=== PATIENT | female | born 1985 | race Caucasian/White ===

== ENCOUNTER 2019-05-13 14:43 | Day surgery (SDC) | payer BC ==
[2019-05-13] MEDS ORDERED: Sodium Chloride 0.9% 10 ML Syringe FLUSH PRN (15:20)
--- NOTE | 2019-05-13 16:57 | EDM.PDOC ---
ED HPI GENERAL MEDICAL PROBLEM - General Chief Complaint: Abdominal Pain Stated Complaint: ABDOMINAL AND BACK PAIN Time Seen by Provider: 05/13/19 14:55 Source of Information: Reports: Patient, RN Notes Reviewed - History of Present Illness INITIAL COMMENTS - FREE TEXT/NARRATIVE: 34-year-old female comes in with sudden onset of abdominal pain about 2 hours prior to arrival. She had been feeling fine earlier today. She did have a couple of pieces of pizza from [employer] at noon today and then onset of pain not too long after that. Her pain is been right upper quadrant with some radiation to her back. Pain initially was quite severe and now is more moderate but still present. She did have some nausea but no vomiting. There's been no fever or chills. She has no known personal history for gallbladder disease but there is a strong family history for gallbladder problems. She states that she' d been on a quite intense diet for the prior 6 weeks and had not been eating any fatty type foods whatsoever up until lunch today. No chest pain, cough or difficulty breathing. No lower abdominal or pelvic discomfort. Right Upper Abdomen Pain Score (Numeric/FACES): 4 - Related Data Allergies Allergy/AdvReac Type Severity Reaction Status Date / Time No Known Allergies Allergy Verified 05/13/19 14:55 Home Meds: Home Meds Esomeprazole Magnesium [Nexium] 40 mg PO DAILY 05/13/19 [History] Metoprolol Tartrate 12.5 mg PO BID 05/13/19 [History] Midodrine 2.5 mg PO TIDAC 05/13/19 [History] Verapamil HCl [Verapamil Sr] 180 mg PO DAILY 05/13/19 [History] Past Medical History Cardiovascular History: Reports: Other (See Below) Other Cardiovascular History: POTS Gastrointestinal History: Reports: GERD Social & Family History - Family History Family Medical History: Noncontributory - Tobacco Use Smoking Status *Q: Never Smoker ED ROS GENERAL - Review of Systems Review Of Systems: See Below Constitutional: Denies: Fever, Chills HEENT: Reports: No Symptoms Respiratory: Denies: Shortness of Breath, Pleuritic Chest Pain Cardiovascular: Denies: Chest Pain GI/Abdominal: Reports: Abdominal Pain, Nausea. Denies: Diarrhea, Vomiting (Non- ) Musculoskeletal: Reports: Back Pain Skin: Reports: No Symptoms ED EXAM, GI/ABD - Physical Exam Exam: See Below General Appearance: Alert, Mild Distress Throat/Mouth: Normal Inspection Respiratory/Chest: No Respiratory Distress, No Accessory Muscle Use Cardiovascular: Normal Peripheral Pulses, Regular Rate, Rhythm GI/Abdominal Exam: Tender (There is moderate tenderness of the upper mid abdomen and right upper quadrant). No: Guarding, Rebound Back Exam: No: CVA Tenderness (L), CVA Tenderness (R) Extremities: Normal Inspection, Normal Range of Motion Skin Exam: Warm, Dry, Normal Color Course - Vital Signs Last Recorded V/S: Last Vital Signs Temp 97.9 F 05/13/19 19:25 Pulse 73 05/13/19 19:25 Resp 16 05/13/19 19:25 BP 125/83 05/13/19 19:25 Pulse Ox 100 05/13/19 19:25 - Orders/Labs/Meds Orders: Active Orders 24 hr Category Date Time Status EKG Documentation Completion [RC] STAT Care 05/13/19 19:25 Active Peripheral IV Care [RC] . DIRECTED Care 05/13/19 15:22 Active Abdomen Ltd [US] Stat Exams 05/13/19 16:37 Taken Sodium Chloride 0.9% [Saline Flush] Med 05/13/19 15:20 Active 10 ml FLUSH ASDIRECTED PRN Peripheral IV Insertion Adult [OM.PC] Stat Oth 05/13/19 15:22 Ordered Medication Orders Sodium Chloride (Saline Flush) 10 ml FLUSH ASDIRECTED PRN PRN Reason: Keep Vein Open Last Admin: 05/13/19 18:25 Dose: 10 ml Labs: Laboratory Tests 05/13/19 05/13/19 Range/Units 15:40 15:40 WBC 15.62 H (3.98-10.04) K/mm3 RBC 5.22 (3.98-5.22) M/mm3 Hgb 14.0 (11.2-15.7) gm/L Hct 43.5 (34.1-44.9) % MCV 83.3 (79.4-94.8) fl MCH 26.8 (25.6-32.2) pg MCHC 32.2 (32.2-35.5) g/dl RDW Std Deviation 45.1 (36.4-46.3) fL Plt Count 241 (182-369) K/mm3 MPV 13.1 H (9.4-12.3) fl Neut % (Auto) 86.3 H (34.0-71.1) % Lymph % (Auto) 8.1 L (19.3-51.7) % Meriwether % (Auto) 4.6 L (4.7-12.5) % Eos % (Auto) 0.6 L (0.7-5.8) Baso % (Auto) 0.2 (0.1-1.2) % Neut # (Auto) 13.48 H (1.56-6.13) K/mm3 Lymph # (Auto) 1.27 (1.18-3.74) K/mm3 Meriwether # (Auto) 0.72 H (0.24-0.36) K/mm3 Eos # (Auto) 0.09 (0.04-0.36) K/mm3 Baso # (Auto) 0.03 (0.01-0.08) K/mm3 Manual Slide Review Abnormal smear Sodium 140 (136-145) mEq/L Potassium 3.6 (3.5-5.1) mEq/L Chloride 101 (98-107) mEq/L Carbon Dioxide 27 (21-32) mEq/L Anion Gap 15.6 H (5-15) BUN 12 (7-18) mg/dL Creatinine 0.9 (0.55-1.02) mg/dL Est Cr Clr Drug Dosing 84.03 mL/min Estimated GFR (MDRD) > 60 (>60) mL/min BUN/Creatinine Ratio 13.3 L (14-18) Glucose 89 (74-106) mg/dL Calcium 9.2 (8.5-10.1) mg/dL Total Bilirubin 0.5 (0.2-1.0) mg/dL GGT 76 H (5-55) U/L AST 49 H (15-37) U/L ALT 41 (14-59) U/L Alkaline Phosphatase 72 (46-116) U/L Total Protein 7.7 (6.4-8.2) g/dl Albumin 4.4 (3.4-5.0) g/dl Globulin 3.3 gm/dL Albumin/Globulin Ratio 1.3 (1-2) Lipase 155 (73-393) U/L Meds: Medications Generic Name Dose Route Start Last Admin Trade Name Freq PRN Reason Stop Dose Admin Sodium Chloride 10 ml 05/13/19 15:20 05/13/19 18:25 Saline Flush FLUSH 10 ml ASDIRECTED PRN Administration Keep Vein Open Discontinued Medications Generic Name Dose Route Start Last Admin Trade Name Aniya PRN Reason Stop Dose Admin Ceftriaxone Sodium 2 gm 05/13/19 17:58 05/13/19 18:19 Rocephin IV 05/13/19 17:59 Not Given ONETIME ONE Hydromorphone HCl 0.5 mg 05/13/19 18:00 05/13/19 18:23 Dilaudid IVPUSH 05/13/19 18:01 0.5 mg ONETIME ONE Administration Ceftriaxone Sodium 2 gm/ 100 mls @ 200 mls/hr 05/13/19 18:30 05/13/19 18:28 Sodium Chloride IV 05/13/19 18:59 200 mls/hr Q24H ONE Administration - Re-Assessments/Exams Free Text/Narrative Re-Assessment/Exam: 05/13/19 17:00. White blood count somewhat elevated at just over 15,000. STD, GGT very mildly elevated. Bilirubin 0.5. She continues to have mild to moderate discomfort of her upper abdomen but so far is refused anything for pain. Have ordered ultrasound to get a look at her gallbladder and get more information. 05/13/19 18:35. Ultrasound of gallbladder does show sludge and also mild wall thickening. Common bile duct normal, no stones, no dilatation. I discussed this with our General Surgeon pest control supervisor Dr. Mejia who will see patient. Rocephin 2 g IV had been previously ordered along with Dilaudid 0.5 mg IV. 05/13/19 19:00. Dr Mejia will take patient to surgery, cholecystectomy. Pt has been kept NPO. Departure - Departure Time of Disposition: 18:40 Disposition: DC/Tfer to [facility] Condition: Fair Clinical Impression: Cholecystitis - Discharge Information - My Orders Last 24 Hours: My Active Orders 05/13/19 15:20 Sodium Chloride 0.9% [Saline Flush] 10 ml FLUSH ASDIRECTED PRN 05/13/19 15:22 Peripheral IV Care [RC] . DIRECTED Peripheral IV Insertion Adult [OM.PC] Stat 05/13/19 16:37 Abdomen Ltd [US] Stat - Assessment/Plan Last 24 Hours: My Active Orders 05/13/19 15:20 Sodium Chloride 0.9% [Saline Flush] 10 ml FLUSH ASDIRECTED PRN 05/13/19 15:22 Peripheral IV Care [RC] . DIRECTED Peripheral IV Insertion Adult [OM.PC] Stat 05/13/19 16:37 Abdomen Ltd [US] Stat
[2019-05-13] MEDS ORDERED: cefTRIAXone 2 GM Vial IV ONE (17:58)
[2019-05-13] MEDS ORDERED: HYDROmorphone 0.5 MG/0.5 ML Syringe IVPUSH ONE (18:00)
[2019-05-13] MEDS ORDERED: cefTRIAXone 2 GM in Sodium Chloride 0.9% 100 ML IV ONE (18:30)
--- NOTE | 2019-05-13 19:25 | PCM.PREANE ---
Preanesthetic Assessment - Anesthesia/Transfusion/Family Hx Anesthesia History: Prior Anesthesia Without Reaction Family History of Anesthesia Reaction: No Transfusion History: No Prior Transfusion(s) Intubation History: Unknown - Review of Systems General: No Symptoms Pulmonary: No Symptoms Cardiovascular: No Symptoms (Postural orthostatic tachycardia syndrome: POTS), Palpitations Gastrointestinal: No Symptoms (GERD), Abdominal Pain, Constipation (chronic) Neurological: No Symptoms (motion sickness/vertigo), Syncope (POTS) Other: Reports: None - Physical Assessment NPO Status Date: 05/13/19 NPO Status Time: 15:00 Pulse: 73 O2 Sat by Pulse Oximetry: 100 Respiratory Rate: 16 Blood Pressure: 125/83 Temperature: 36.6 C Vital Signs: Last Vital Signs Temp 36.6 C 05/13/19 14:57 Pulse 73 05/13/19 14:57 Resp 16 05/13/19 14:57 BP 125/83 05/13/19 14:57 Pulse Ox 100 05/13/19 14:57 Height: 1.7 m Weight: 88.451 kg ASA Class: 2 Mental Status: Alert & Oriented x3 Airway Class: Mallampati = 2 Dentition: Reports: Normal Dentition, Caries Thyro-Mental Finger Breadths: 3 Mouth Opening Finger Breadths: 3 ROM/Head Extension: Full Lungs: Clear to Auscultation, Normal Respiratory Effort Cardiovascular: Regular Rate, Regular Rhythm, No Murmurs - Lab Values: Laboratory Last Values WBC 15.62 K/mm3 (3.98-10.04) H 05/13/19 15:40 RBC 5.22 M/mm3 (3.98-5.22) 05/13/19 15:40 Hgb 14.0 gm/L (11.2-15.7) 05/13/19 15:40 Hct 43.5 % (34.1-44.9) 05/13/19 15:40 MCV 83.3 fl (79.4-94.8) 05/13/19 15:40 MCH 26.8 pg (25.6-32.2) 05/13/19 15:40 MCHC 32.2 g/dl (32.2-35.5) 05/13/19 15:40 RDW Std Deviation 45.1 fL (36.4-46.3) 05/13/19 15:40 Plt Count 241 K/mm3 (182-369) 05/13/19 15:40 MPV 13.1 fl (9.4-12.3) H 05/13/19 15:40 Neut % (Auto) 86.3 % (34.0-71.1) H 05/13/19 15:40 Lymph % (Auto) 8.1 % (19.3-51.7) L 05/13/19 15:40 Ellis % (Auto) 4.6 % (4.7-12.5) L 05/13/19 15:40 Eos % (Auto) 0.6 (0.7-5.8) L 05/13/19 15:40 Baso % (Auto) 0.2 % (0.1-1.2) 05/13/19 15:40 Neut # (Auto) 13.48 K/mm3 (1.56-6.13) H 05/13/19 15:40 Lymph # (Auto) 1.27 K/mm3 (1.18-3.74) 05/13/19 15:40 Ellis # (Auto) 0.72 K/mm3 (0.24-0.36) H 05/13/19 15:40 Eos # (Auto) 0.09 K/mm3 (0.04-0.36) 05/13/19 15:40 Baso # (Auto) 0.03 K/mm3 (0.01-0.08) 05/13/19 15:40 Manual Slide Review Abnormal smear 05/13/19 15:40 Sodium 140 mEq/L (136-145) 05/13/19 15:40 Potassium 3.6 mEq/L (3.5-5.1) 05/13/19 15:40 Chloride 101 mEq/L (98-107) 05/13/19 15:40 Carbon Dioxide 27 mEq/L (21-32) 05/13/19 15:40 Anion Gap 15.6 (5-15) H 05/13/19 15:40 BUN 12 mg/dL (7-18) 05/13/19 15:40 Creatinine 0.9 mg/dL (0.55-1.02) 05/13/19 15:40 Est Cr Clr Drug Dosing 84.03 mL/min 05/13/19 15:40 Estimated GFR (MDRD) > 60 mL/min (>60) 05/13/19 15:40 BUN/Creatinine Ratio 13.3 (14-18) L 05/13/19 15:40 Glucose 89 mg/dL (74-106) 05/13/19 15:40 Calcium 9.2 mg/dL (8.5-10.1) 05/13/19 15:40 Total Bilirubin 0.5 mg/dL (0.2-1.0) 05/13/19 15:40 GGT 76 U/L (5-55) H 05/13/19 15:40 AST 49 U/L (15-37) H 05/13/19 15:40 ALT 41 U/L (14-59) 05/13/19 15:40 Alkaline Phosphatase 72 U/L (46-116) 05/13/19 15:40 Total Protein 7.7 g/dl (6.4-8.2) 05/13/19 15:40 Albumin 4.4 g/dl (3.4-5.0) 05/13/19 15:40 Globulin 3.3 gm/dL 05/13/19 15:40 Albumin/Globulin Ratio 1.3 (1-2) 05/13/19 15:40 Lipase 155 U/L (73-393) 05/13/19 15:40 Above labs reviewed and noted and within acceptable ranges to proceed with procedure. - Allergies Allergies/Adverse Reactions: Allergies Allergy/AdvReac Type Severity Reaction Status Date / Time No Known Allergies Allergy Verified 05/13/19 14:55 - Anesthesia Plan Pre-Op Medication Ordered: Beta Lazarus Beta Lazarus: Metoprolol Med Last Dose Date: 05/13/19 Med Last Dose Time: 06:00 - Acknowledgements Anesthesia Type Planned: General Anesthesia Pt an Appropriate Candidate for the Planned Anesthesia: Yes Alternatives and Risks of Anesthesia Discussed w Pt/Guardian: Yes Pt/Guardian Understands and Agrees with Anesthesia Plan: Yes PreAnesthesia Questionnaire Cardiovascular History: Reports: Other (See Below) Other Cardiovascular History: POTS Gastrointestinal History: Reports: GERD - SUBSTANCE USE Smoking Status *Q: Never Smoker - HOME MEDS Home Medications: Home Meds Esomeprazole Magnesium [Nexium] 40 mg PO DAILY 05/13/19 [History] Metoprolol Tartrate 12.5 mg PO BID 05/13/19 [History] Midodrine 2.5 mg PO TIDAC 05/13/19 [History] Verapamil HCl [Verapamil Sr] 180 mg PO DAILY 05/13/19 [History] - CURRENT (IN HOUSE) MEDS Current Meds: Current Medications Sodium Chloride (Saline Flush) 10 ml FLUSH ASDIRECTED PRN PRN Reason: Keep Vein Open Last Admin: 05/13/19 18:25 Dose: 10 ml Discontinued Medications Ceftriaxone Sodium (Rocephin) 2 gm IV ONETIME ONE Stop: 05/13/19 17:59 Last Admin: 05/13/19 18:19 Dose: Not Given Hydromorphone HCl (Dilaudid) 0.5 mg IVPUSH ONETIME ONE Stop: 05/13/19 18:01 Last Admin: 05/13/19 18:23 Dose: 0.5 mg Ceftriaxone Sodium 2 gm/ (Sodium Chloride) 100 mls @ 200 mls/hr IV Q24H ONE Stop: 05/13/19 18:59 Last Admin: 05/13/19 18:28 Dose: 200 mls/hr
[2019-05-13] MEDS ORDERED: Lidocaine 1% 6 ML ONE (19:41)
[2019-05-13] MEDS ORDERED: Dexamethasone 4 MG/ML 5 ML MDV ONE (19:41)
[2019-05-13] MEDS ORDERED: Lactated Ringers 2,000 ML ONE (19:41)
[2019-05-13] MEDS ORDERED: Succinylcholine/Normal Saline 100 MG/5 ML Syringe ONE (19:41)
[2019-05-13] MEDS ORDERED: Ketorolac 30 MG/ML SDV ONE (19:41)
[2019-05-13] MEDS ORDERED: Rocuronium 50 MG/5 ML Vial ONE (19:41)
[2019-05-13] MEDS ORDERED: Ondansetron 4 MG/2 ML SDV ONE (19:41)
[2019-05-13] MEDS ORDERED: HYDROmorphone 0.5 MG/0.5 ML Syringe ONE (19:42)
[2019-05-13] MEDS ORDERED: Midazolam 1 MG/ML 2 ML SDV ONE (19:42)
[2019-05-13] MEDS ORDERED: Propofol 200 MG/20 ML SDV ONE (19:42)
[2019-05-13] MEDS ORDERED: fentaNYL 250 MCG/5 ML SDV ONE (19:43)
[2019-05-13] MEDS ORDERED: Bupivacaine 0.5% 30 ML SDV ONE (19:58)
[2019-05-13] MEDS ORDERED: Phenylephrine/Normal Saline 100 MCG/ML 10 ML Syringe ONE (20:34)
[2019-05-13] MEDS ORDERED: Scopolamine 1.5 MG Transdermal Patch TRDERM ONE (20:38)
[2019-05-13] MEDS ORDERED: Ondansetron 4 MG/2 ML SDV IVPUSH PRN (20:40)
[2019-05-13] MEDS ORDERED: ePHEDrine 50 MG/ML SDV IVPUSH PRN (20:40)
[2019-05-13] MEDS ORDERED: Haloperidol Lactate 5 MG/ML SDV IVPUSH ONE (20:40)
[2019-05-13] MEDS ORDERED: Metoclopramide 10 MG/2 ML SDV IV PRN (20:40)
[2019-05-13] MEDS ORDERED: ePHEDrine/Normal Saline 25 MG/5 ML Syringe ONE (20:40)
[2019-05-13] MEDS ORDERED: diphenhydrAMINE 50 MG/ML SDV IVPUSH PRN (20:40)
[2019-05-13] MEDS ORDERED: fentaNYL 100 MCG/2 ML SDV IVPUSH PRN (20:40)
[2019-05-13] MEDS ORDERED: HYDROmorphone 0.5 MG/0.5 ML Syringe IVPUSH PRN (20:40)
[2019-05-13] MEDS ORDERED: Neostigmine Methylsulfate 1 MG/ML 5 ML Syringe ONE (20:50)
--- NOTE | 2019-05-13 20:51 | HP ---
DATE OF ADMISSION: 05/13/2019 CHIEF COMPLAINT: Abdominal pain. HISTORY OF PRESENT ILLNESS: The patient is a 34-year-old female who was driving with her family on the way to [place]. They reside in [facility]. They had just eaten lunch outside of [place]. She said she had a bit of pizza and had a rather sudden onset of right upper quadrant and epigastric abdominal pain. The pain radiated straight to the back and around to the back to the right scapula. She had an episode of nausea without vomiting. She has had no fever or chills. She was not aware of any prior episodes of gallbladder dysfunction. She said she has been on a low-fat diet recently and has lost about 25 pounds with some additional exercise. While on the road, her pain seemed to get worse. As she passed [place], they made a decision to pull off and seek medical attention. The pain upon arrival was a bit severe but settled down with a 0.5 mg Dilaudid, currently 4/10 in intensity. She still has some discomfort on my examination. She denies any prior episodes. PAST MEDICAL HISTORY: 1. Paroxysmal orthostatic tachycardia syndrome. 2. Gastroesophageal reflux disease. PAST SURGICAL HISTORY: She has had her tonsils removed. No problems with anesthesia other than nausea. SUBSTANCE HISTORY: She denies smoking. Denies illicit drugs. Denies alcohol use. CURRENT MEDICATIONS: At home, she takes: 1. Nexium 40 mg daily. 2. Metoprolol 12.5 mg p.o. b.i.d. 3. Midodrine 2.5 mg t.i.d. 4. Verapamil 180 mg p.o. daily. REVIEW OF SYSTEMS: She has had some recent intended weight loss. Admit to nausea and abdominal pain this afternoon, but a 10-system review is otherwise negative. FAMILY HISTORY: Unremarkable. PHYSICAL EXAMINATION: GENERAL: She is in some mild painful distress, but does not appear toxic. VITAL SIGNS: Temperature 97.9, pulse 73, respirations 16, blood pressure 125/83, saturating 100% on room air. HEAD AND NECK: Normocephalic, atraumatic. She is anicteric. LUNGS: Clear to auscultation bilaterally. HEART: Regular rate and rhythm. No clicks, murmurs, or rubs. ABDOMEN: Soft, but she has tenderness in the right upper quadrant with a positive Joseph sign. No generalized tenderness or rebound or guarding. No palpable masses. No hernias. EXTREMITIES: No clubbing, cyanosis, or edema. No calf tenderness. INTEGUMENT: No rashes. No lesions. No jaundice. NEUROLOGIC: Her cranial nerves are grossly intact. Sensation and movement are preserved in all 4 extremities. PSYCHIATRIC: She has appropriate affect and demeanor. Her thoughts are linear. LABORATORY DATA: On admission, she had labs showing leukocytosis of 15,600, hemoglobin stable at 14, platelets 241. She has a left shift. Chemistries are unremarkable. Notably absent is any biochemical evidence of obstruction. She had an ultrasound, which showed sludge and a thickened enhancing gallbladder wall consistent with acute cholecystitis. Common duct is unremarkable. ASSESSMENT: Acute cholecystitis as evidenced by leukocytosis, the clinical syndrome, and diagnosis confirmed on ultrasound. PLAN: She has been given 2 g of Rocephin. We have discussed her various options. I have recommended cholecystectomy. Although she is a little hesitant to have surgery on her vacation, she realizes that she probably does not want to have this another attack in the [facility] while doing primitive camping far away from medical care. She has opted to have her gallbladder removed. I had a lengthy discussion with her and her entire family regarding the risks, benefits, and alternatives. The risks include, but are not limited to, perforation of the bowel, bleeding, injury to the liver, injury to the common duct, reoperation, bile leak, retained stone, and many others. She gave informed consent. VICKY /[id number]
[2019-05-13] MEDS ORDERED: Lactated Ringers 1,000 ML ONE (21:01)
--- NOTE | 2019-05-13 21:40 | PCM.POSTAN ---
POST ANESTHESIA ASSESSMENT - MENTAL STATUS Mental Status: Alert - VITAL SIGNS Pulse Rate: 83 SaO2: 100 Resp Rate: 11 Blood Pressure: 114/57 Temperature: 36.8 C - RESPIRATORY Respiratory Status: Respiratory Rate WNL, Airway Patent, O2 Saturation Stable, Supplemental Oxygen - CARDIOVASCULAR CV Status: Pulse Rate WNL, Blood Pressure Stable - GASTROINTESTINAL GI Status: No Symptoms - POST OP HYDRATION Hydration Status: Adequate & Stable
--- NOTE | 2019-05-13 21:54 | PCM48HPAN ---
Post Anesthesia Note - EVALUATION WITHIN 48HRS OF ANESTHETIC Vital Signs in Normal Range: Yes Patient Participated in Evaluation: Yes Respiratory Function Stable: Yes Airway Patent: Yes Cardiovascular Function Stable: Yes Hydration Status Stable: Yes Pain Control Satisfactory: Yes Nausea and Vomiting Control Satisfactory: Yes Mental Status Recovered: Yes
--- NOTE | 2019-05-13 22:45 | OR ---
DATE OF OPERATION: 05/13/2019 SURGEON: Nehemias Mejia MD PREOPERATIVE DIAGNOSIS: Acute cholecystitis. POSTOPERATIVE DIAGNOSIS: Acute cholecystitis. OPERATION PERFORMED: Laparoscopic cholecystectomy. ANESTHESIA: General with endotracheal intubation. FINDINGS: She had an acutely inflamed edematous gallbladder full of what appeared to be sludge. I could not palpate any stones. She had significant acute on chronic adhesions covering on gallbladder as well. PATHOLOGY: Gallbladder and contents. COMPLICATIONS: None. ESTIMATED BLOOD LOSS: Less than 2 mL. DISPOSITION: Stable at the end of procedure. INDICATIONS: The patient is a 34-year-old female who presented acutely with epigastric and right upper quadrant abdominal pain. She had a thorough workup. Diagnosis was confirmed on ultrasound. She was offered cholecystectomy. She gave informed consent for the procedure. Please see a thorough documentation of my discussion with her regarding the risks, benefits, and complications in my previous note for what was done. DESCRIPTION OF PROCEDURE: The patient was brought to the operating room and placed in the supine position on the operating table. All pressure points were padded. She was given general anesthesia and intubated. The left arm was tucked. The abdomen was prepped and draped in the usual sterile fashion. A Veress needle insertion was undertaken in the left upper quadrant and insufflation was undertaken to a pressure of 15 mmHg. There was no evidence of restriction. An optical 5 mm port was passed in the right upper quadrant along the anterior axillary line. I visualized the tissue planes as the port passed into the peritoneum. There was no contact to underlying bowel. Two additional 5 mm ports were placed, one in the epigastrium and one in the right upper quadrant along the midclavicular line. The Veress needle was visualized in the left upper quadrant and no contact to underlying bowel was visualized. There was no injury to the underlying stomach. The Veress was removed. I passed a 12 mm optical port in the umbilicus. All these ports were passed under direct laparoscopic visualization. I turned my attention to the gallbladder. The patient was placed in a reverse Trendelenburg position with the right side up. The gallbladder was grasped and retracted cranially. The gallbladder was covered with dense force of adhesions, which were taken down with Bovie cautery using [place] dissector. Eventually, I was able to see the body of the gallbladder, and the gallbladder was retracted laterally to visualize the cystic duct and cystic artery. These 2 structures were visualized and then skeletonized. Once I ensured the critical view of safety, the cystic artery and cystic duct were clipped and transected in the usual fashion. Three clips were left on the cystic duct and 2 clips were left on the cystic artery. I then undertook further dissection of the gallbladder away from its embryonic attachment to the liver. This was done with a hook cautery after I was assured that there were no additional important structures nearby. The gallbladder was eventually placed in an EndoCatch bag and retrieved through the 12 mm port site. I passed a 0 Vicryl stitch across the 12 mm port site with a Amor Bishop stitch passer in a [id number] fashion for complete obliteration of that defect. There was minimal amount of weeping from the gallbladder fossa and this was mopped up with Ray-Sharifa. At the end of the procedure, all counts were correct. I inspected for any further bleeding. No bile staining was observed and the clips were seen to be still in place on the cystic duct and the cystic artery at the end of the procedure. The ports were then opened to desufflate the gas and each of the incisions was reapproximated with 4-0 Monocryl suture material. Dermabond was applied for sterile barrier. She had no complications and tolerated the procedure well. PLAN: She will be discharged from the floor as an extended recovery. She is in transit toward [place]. She will be staying in [place] followed by , both have excellent medical facilities. I cautioned her to avoid lifting anything heavier than 20 pounds and extensive exertion for the next week. She should also avoid showering until tomorrow morning. If she has redness, foul- smelling drainage, increasing pain, nausea, vomiting, or any other concerning symptoms, she should seek medical advice in any of those 2 facilities. VICKY /[id number]
--- NOTE | 2019-05-15 09:36 | US ---
Limited abdominal ultrasound: Multiple real-time images were obtained of the upper right abdomen. Comparison: No previous study. Gallbladder contains no shadowing gallstones. No gallbladder wall thickening or biliary duct dilatation is seen. Small amount of sludge is noted within the gallbladder. Liver contains no focal parenchymal abnormality. Right kidney shows no hydronephrosis or mass and has a length of 11.0 cm. Pancreas shows no discrete abnormality. Inferior vena cava is patent. Portal vein shows hepatopedal flow. Impression: 1. Mild amount of sludge within the gallbladder. 2. No additional abnormality is appreciated on right upper quadrant abdominal ultrasound. Diagnostic code #2 I agree with preliminary report from [facility], finalized on 05/13/19, 7:14 PM Central Time
== END 2019-05-13 23:47 | disposition home or self-care (01) ==
LOC: JD.ED 14:43 → JD.SDS 19:41 → JD.MS 22:47 → JD.SDS 23:47
PROVIDERS: ATTEND Surgery
DX: K80.10 Calculus of gallbladder with chronic cholecystitis without obstruction (principal); I95.1 Orthostatic hypotension; K21.9 Gastro-esophageal reflux disease without esophagitis
CPT/HCPCS: 36415; 47562; 76705; 80053; 81025; 82977; 83690; 85025; 96365; 96375; 99285; A9270; J0696; J1100; J1170; J1885; J2001; J2250; J2370; J2405; J2704; J2710; J3010; J3490; J7030; J7050; J7120; 00790; 99284; J0330